=== PATIENT | male | born 1955 | race African-American/Black ===

== ENCOUNTER 2021-08-31 12:40 | Emergency (ER) | payer OTHER ==
[~2021-08-31] VITALS: Ht 188 cm; Wt 92.5 kg
[2021-08-31] MEDS ORDERED: ASPIRIN81 MG PO (12:52)
== END 2021-08-31 17:30 | disposition home or self-care (01) ==
LOC: ED 12:40
DX: U07.1 COVID-19 (principal); Z79.82 Long term (current) use of aspirin
CPT/HCPCS: 36415; 71045; 80053; 83605; 85025; 87502; 96374; 99284-25; A9270; C9803; U0003